=== PATIENT | male | born 2000 | race African-American/Black ===

== ENCOUNTER 2022-08-19 16:35 | Emergency (ER) | payer SELFPAY | END 2022-08-19 18:00 | disposition home or self-care (01) | LOC: CSHERS 16:35 | DX: Z00.00 Encounter for general adult medical examination without abnormal findings (principal); G43.909 Migraine, unspecified, not intractable, without status migrainosus | CPT/HCPCS: 99283 ==

== ENCOUNTER 2022-10-27 15:52 | Outpatient (CLI) | payer BC | END 2022-10-27 15:53 | disposition home or self-care (01) | LOC: CSHRAD 15:52 | PROVIDERS: ATTEND Student in an Organized Health Care Education/Training Program | DX: M25.561 Pain in right knee (principal); M25.562 Pain in left knee ==

== ENCOUNTER 2023-12-02 18:12 | Emergency (ER) | payer BC ==
[2023-12-02] MEDS ORDERED: Boostrix 0.5 ML (Tdap) VIAL (>/=7 yrs of age) ONE (19:00)
== END 2023-12-02 19:58 | disposition home or self-care (01) ==
LOC: CSHERS 18:12
DX: S61.451A Open bite of right hand, initial encounter (principal); F17.290 Nicotine dependence, other tobacco product, uncomplicated; Z23 Encounter for immunization; W54.0XXA Bitten by dog, initial encounter
CPT/HCPCS: 90715